=== PATIENT | male | born 1960 | race Caucasian/White ===

== ENCOUNTER 2016-05-15 00:33 | Inpatient (IN) | payer OTHER ==
[2016-05-15] VITALS (16 sets, daily range): BP systolic 118–158; BP diastolic 58–89; PULSE 67–96; RESP 16–20; TEMP 97.8–98.7; O2SAT 91–100
[~2016-05-15] VITALS: Ht 182.9 cm; Wt 93.2 kg
[2016-05-15] MEDS ORDERED: LORazepam 2 MG/ML VIAL ONE ×2 (02:03→03:33)
[2016-05-15 02:26] LABS: AUTOMATED NEUTROPHIL # 6.3 TH/MM3 (1.8-7.7); BASOPHIL % 0.3 % (0.0-2.0); EOSINOPHIL % 0.4 % (0.0-4.0); HEMATOCRIT 41.8 % (39.0-51.0); HEMO FLAGS DIFF FINAL; LYMPH % 23.2 % (9.0-44.0); LYMPHOCYTE # 2.2 TH/MM3 (1.0-4.8); MEAN CORPUSCULAR HEMOGLOBIN 30.5 PG (27.0-34.0); MEAN CORPUSCULAR HGB CONC 34.6 % (32.0-36.0); MONO % 8.7 % (0.0-8.0); NEUT % 67.4 % (16.0-70.0); PLATELET COUNT 268 TH/MM3 (150-450); RED BLOOD COUNT 4.75 MIL/MM3 (4.50-5.90); WHITE BLOOD COUNT 9.3 TH/MM3 (4.0-11.0)
[2016-05-15 02:34] LABS: ACETAMINOPHEN LESS THAN 2.0 MCG/ML (10.0-30.0); ALKALINE PHOSPHATASE 81 U/L (45-117); ALT (GPT) 67 U/L (12-78); AMPHETAMINE, URINE NEG (NEG); ANION GAP 12 MEQ/L (5-15); AST (GOT) 81 U/L (15-37); BARBITURATES, URINE NEG (NEG); BICARBONATE 25.7 MEQ/L (21.0-32.0); BLOOD UREA NITROGEN 17 MG/DL (7-18); CHLORIDE 102 MEQ/L (98-107); COCAINE, URINE NEG (NEG); GLOMERULAR FILTRATION RATE 76 ML/MIN (>89); POTASSIUM 3.1 MEQ/L (3.5-5.1); SODIUM (NA) 140 MEQ/L (136-145)
[2016-05-15 02:54] LABS: TOTAL BILIRUBIN ADULT 0.9 MG/DL (0.2-1.0)
[2016-05-15] MEDS ORDERED: HALOPERIDOL LACTATE 5 MG/ML AMP ONE ×2 (03:12→03:33)
[2016-05-15] MEDS ORDERED: LORazepam 2 MG/ML VIAL IM ONE (03:15)
[2016-05-15] MEDS ORDERED: HALOPERIDOL LACTATE 5 MG/ML AMP IM ONE (03:15)
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
[2016-05-15] MEDS ORDERED: diphenhydrAMINE HCL 50 MG/ML VIAL ONE (03:43)
[2016-05-15] MEDS ORDERED: diphenhydrAMINE HCL 50 MG/ML VIAL IM ONE (03:45)
[2016-05-15] MEDS ORDERED: POTASSIUM CHLORIDE 20 MEQ CONTROLLED RELEASE TAB PO ONE (03:45)
--- NOTE | 2016-05-15 04:32 | RADRPT ---
EXAM DATE/TIME: 05/15/2016 03:53 [facility] COMPARISON: No previous studies available for comparison. INDICATIONS : Altered mental status. RADIATION DOSE: 56.77 CTDIvol (mGy) MEDICAL HISTORY : None SURGICAL HISTORY : None. ENCOUNTER: Initial ACUITY: 1 day PAIN SCALE: 0/10 LOCATION: cranial TECHNIQUE: Multiple contiguous axial images were obtained of the head. Using automated exposure control and adj ustment of the mA and/or kV according to patient size, radiation dose was kept as low as reasonably a chievable to obtain optimal diagnostic quality images. FINDINGS: CEREBRUM: There is a 12 mm hyperdensity in the cortex of the left lateral frontal lobe near the junction with t he middle cranial fossa, best seen on image #11. No associated mass effect or midline shift. The le ft frontal horn is not effaced. There is good kwok-white matter differentiation throughout the remai nder of the supratentorial brain. POSTERIOR FOSSA: The cerebellum and brainstem are intact. The 4th ventricle is midline. The cerebellopontine angle i s unremarkable. EXTRACRANIAL: The visualized portion of the orbits is intact. Air-fluid level in the left maxillary sinus and a fe w opacified right ethmoid air cells. SKULL: The calvaria is intact. No evidence of skull fracture. CONCLUSION: 1. 12 mm hyperdensity cortex left lateral frontal lobe suggests hemorrhage or tumor. May consider fu rther characterization using MRI with and without contrast. 2. Left maxillary sinus disease. Alessandro Becerra MD on May 15, 2016 at 4:26 Board Certified Radiologist. This report was verified electronically.
[2016-05-15] MEDS ORDERED: POTASSIUM CHLOR 20 MEQ PREMIX 100 ML ONE (05:30)
[2016-05-15] MEDS ORDERED: POTASSIUM CHLOR 20 MEQ PREMIX 100 ML IV ONE (05:30)
[2016-05-15 05:31] LABS: APTT (PATIENT) 27.5 SEC (24.3-30.1); INTERNATIONAL NORMALIZED RATIO 1.1 RATIO; PROTHROMBIN TIME - PATIENT 11.9 SEC (9.8-11.6)
--- NOTE | 2016-05-15 05:39 | PD ---
Physical Exam Narrative GENERAL: Well-nourished, well-developed patient. SKIN: Warm and dry. HEAD: Normocephalic EYES: No injection or drainage. ENT: No nasal drainage noted. NECK: Supple, trachea midline. CARDIOVASCULAR: Regular rate and rhythm RESPIRATORY: No accessory muscle use. NEUROLOGICAL: Opens eyes to voice, restrained, slurred speech Data Data Last Documented VS Vital Signs Date Time Temp Pulse Resp B/P Pulse Ox O2 Delivery O2 Flow Rate FiO2 05/15/16 05:05 87 18 148/85 98 Nasal Cannula 2 05/15/16 04:10 98.4 Orders Complete Blood Count With Diff (05/15/16 00:44) Comprehensive Metabolic Panel (05/15/16 00:44) Drug Screen, Random Urine (05/15/16 00:44) Alcohol (Ethanol) (05/15/16 00:44) Salicylates (Aspirin) (05/15/16 00:44) Tylenol (Acetaminophen) (05/15/16 00:44) Psych Screen (05/15/16 00:44) Lorazepam Inj (Ativan Inj) (05/15/16 02:03) Haloperidol Inj (Haldol Inj) (05/15/16 03:15) Lorazepam Inj (Ativan Inj) (05/15/16 03:15) Haloperidol Inj (Haldol Inj) (05/15/16 03:12) Diphenhydramine Inj (Benadryl Inj) (05/15/16 03:45) Haloperidol Inj (Haldol Inj) (05/15/16 03:33) Lorazepam Inj (Ativan Inj) (05/15/16 03:33) Ct Brain W/O Iv Contrast(Rout) (05/15/16 ) Potassium Chloride (Kcl) (05/15/16 03:45) Diphenhydramine Inj (Benadryl Inj) (05/15/16 03:43) Act Partial Throm Time (Ptt) (05/15/16 04:54) Prothrombin Time / Inr (Pt) (05/15/16 04:54) Mri Brain W&W/O Contrast (05/15/16 ) Consult Neurosurgery (05/15/16 ) Potassium Chlor 20 Meq Premix (Kcl 20 Me (05/15/16 05:30) Admit Order (Ed Use Only) (05/15/16 05:26) Labs Laboratory Tests Test 05/15/16 05/15/16 05/15/16 00:44 01:08 05:00 White Blood Count 9.3 TH/MM3 Red Blood Count 4.75 MIL/MM3 Hemoglobin 14.5 GM/DL Hematocrit 41.8 % Mean Corpuscular Volume 88.0 FL Mean Corpuscular Hemoglobin 30.5 PG Mean Corpuscular Hemoglobin 34.6 % Concent Red Cell Distribution Width 13.0 % Platelet Count 268 TH/MM3 Mean Platelet Volume 8.9 FL Neutrophils (%) (Auto) 67.4 % Lymphocytes (%) (Auto) 23.2 % Monocytes (%) (Auto) 8.7 % Eosinophils (%) (Auto) 0.4 % Basophils (%) (Auto) 0.3 % Neutrophils # (Auto) 6.3 TH/MM3 Lymphocytes # (Auto) 2.2 TH/MM3 Monocytes # (Auto) 0.8 TH/MM3 Eosinophils # (Auto) 0.0 TH/MM3 Basophils # (Auto) 0.0 TH/MM3 CBC Comment DIFF FINAL Differential Comment Sodium Level 140 MEQ/L Potassium Level 3.1 MEQ/L Chloride Level 102 MEQ/L Carbon Dioxide Level 25.7 MEQ/L Anion Gap 12 MEQ/L Blood Urea Nitrogen 17 MG/DL Creatinine 1.03 MG/DL Estimat Glomerular Filtration 76 ML/MIN Rate Random Glucose 152 MG/DL Calcium Level 9.2 MG/DL Total Bilirubin 0.9 MG/DL Aspartate Amino Transf 81 U/L (AST/SGOT) Alanine Aminotransferase 67 U/L (ALT/SGPT) Alkaline Phosphatase 81 U/L Total Protein 7.6 GM/DL Albumin 4.5 GM/DL Salicylates Level LESS THAN 1.7 MG/DL Urine Opiates Screen NEG Acetaminophen Level LESS THAN 2.0 MCG/ML Urine Barbiturates Screen NEG Urine Amphetamines Screen NEG Urine Benzodiazepines Screen NEG Urine Cocaine Screen NEG Urine Cannabinoids Screen POS Ethyl Alcohol Level LESS THAN 3 MG/DL Prothrombin Time 11.9 SEC Prothromb Time International 1.1 RATIO Ratio Activated Partial 27.5 SEC Thromboplast Time [facility] Supervised Visit with JOHNNA: Yes Interpretation(s) CBC & BMP Diagram 05/15/16 00:44 05/15/16 01:08 CT brain with contusion versus bleed noted Narrative Course I, Dr. coffey, have reviewed the advance practice practitioner's documentation and am in agreement, met with the patient face to face, made the diagnosis, and the medical decision making was done by me. *My assessment and Findings: 55-year-old male presents under Kidd act for altered mental status. He was seen by the physician construction management assistant who ordered initial testing. When CT resulted with possible bleed he was transferred to my medical pod. Patiently is currently restrained in lidia and sedated. He will open his eyes to voice and lift his head. Neurosurgery was contacted and he'll be monitored in the ICU by the medical team. Diagnosis Primary Impression: Intracranial bleed Additional Impression: Altered mental status Qualified Code: R41.82 - Altered mental status, unspecified altered mental status type Admitting Information Admitting Physician Requests: Admit Edilia Coffey MD May 15, 2016 05:39
[2016-05-15] MEDS ORDERED: BISACODYL 10 MG SUPP PR PRN (05:45)
[2016-05-15] MEDS ORDERED: MISCELLANEOUS NURSING INFORMATION XX SCH (05:45)
[2016-05-15] MEDS ORDERED: ACETAMINOPHEN 1000 MG/100 ML VIAL IV PRN (05:45)
[2016-05-15] MEDS ORDERED: CHLORHEXIDINE GLUCONATE 2 % 1 PACK (2 CLOTHS) TOP PRN (05:45)
[2016-05-15] MEDS ORDERED: SODIUM CHLORIDE 0.9% FLUSH 5 ML FLUSH FLUSH PRN (05:45)
[2016-05-15] MEDS ORDERED: ONDANSETRON HCL 4 MG/2 ML VIAL IVP PRN (05:45)
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
[2016-05-15] MEDS: SODIUM CHLOR 0.9% 1000 ML INJ 1,000 ML IV SCH (05:48)
[2016-05-15] MEDS: SODIUM CHLORIDE 0.9% FLUSH 5 ML FLUSH FLUSH SCH (09:00)
[2016-05-15] MEDS ORDERED: HALOPERIDOL LACTATE 5 MG/ML AMP IM PRN (11:00)
[2016-05-15] MEDS ORDERED: LORazepam 2 MG/ML VIAL IM PRN (11:00)
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
--- NOTE | 2016-05-15 13:52 | PD.CONS ---
Provisional Diagnosis Admission Date May 15, 2016 at 05:32 [place]. Altered mental status History of Present Illness Service Psychiatry Consult Requested By EDMD Reason for Consult Kidd act Primary Care Physician No Primary Care Physician HPI Patient is a 55-year-old white male who comes the ED under Kidd act by the [place] [employer] dated 05/15/16 at 0030 a.m. stating Prasad is unable to determine which day of the week it is and cannot keep a conversation continuous making incoherent remarks patient seen and seen in the ED urine toxicology positive for marijuana. Patient is quite agitated needing restraints and medication to calm in the ED. There is been an overall MRI of the brain neurosurgery is involved in monitoring that. At the present time patient sitting on his gurney and the C pod RN present throughout session patient is alert fairly well oriented though diffusely confused and somewhat contradictory with his statements. There is underlying anger and paranoia related to this. Patient makes contradictory statements also about past psychiatric history initially denying at than saying his mother made do something about this. He does obliquely acknowledged past alcohol use he minimizes the urine toxicology report of marijuana. He denies voices or visions denies suicidality homicidality. He states he been 3 times see lives in a bar and that he inherited from his family. It appears the patient calm somewhat with the use of Haldol and Ativan. I would recommend and agree with this if behavior control as needed well patient to be medically observed and worked up. At this time I would suggest to continue the Kidd act. Thanks for consult we'll continue to follow Review of Systems Except as stated in HPI: all other systems reviewed are Neg Past Family Social History Coded Allergies: UNOBTAINABLE (Unverified , 05/15/16) Past Medical History Unknown at this time Current Medications Medications (Trade) Dose Ordered Sig/Sophie Route Start Time Stop Time Status Last Admin (NS 1000 ml Inj) 1,000 ml @ 100 mls/hr Q10H IV 05/15/16 05:32 05/15/16 05:48 (NS Flush) 2 ml UNSCH PRN FLUSH 05/15/16 05:45 (NS Flush) 2 ml BID FLUSH 05/15/16 09:00 (Zofran Inj) 4 mg Q6H PRN IVP 05/15/16 05:45 (Dulcolax Supp) 10 mg DAILY PRN WI 05/15/16 05:45 (Ofirmev Inj) 1,000 mg Q6H PRN IV 05/15/16 05:45 05/15/16 23:46 Miscellaneous Information 1 [id number] XX 05/15/16 05:45 (Chlorhexidine 2% Cloth) 3 pack Taper DAILY@04 TOP 05/16/16 04:00 05/12/17 03:59 (Chlorhexidine 2% Cloth) 3 pack UNSCH PRN TOP 05/15/16 05:45 (Haldol Inj) 5 mg Q4H PRN IM 05/15/16 11:00 (Ativan Inj) 1 mg Q2H PRN IM 05/15/16 11:00 Family History He states he was on the family property Social History States has been 3 times Patient's Strengths (min. 2) Patient verbal responses to treatment Physical Exam Please see med surge assessments Vital Signs Vital Signs Date Time Temp Pulse Resp B/P Pulse Ox O2 Delivery O2 Flow Rate FiO2 05/15/16 13:00 91 20 149/89 98 Room Air 05/15/16 05:39 2 05/15/16 04:10 98.4 Mental Status Examination Alert fairly well oriented muscular white male appears stated age on the gurney in full leather restraints somewhat vigilant with intense eye contact with a paranoid flavor Appearance Somewhat disheveled Speech: Pressured, Rapid Orientation: x3 Memory: Impaired (describe) (vague about behaviors leading to this hospitalization) Thought Process: Circumstantial, Linear, Tangential Thought Content: Unremarkable Hallucination Type: None Attention and Concentration: Other (fair) Suicidal Ideation: No Previous Suicide Attempts: No Homicidal Ideation: No Previous Homicide Attempts: No Insight: Poor Judgement: Poor Affect: Other (slight increased range and intensity) Mood: Irritable Motor Activity: Normal gait (patient for the straight secondary) Assessment & Plan Problem List: (1) Altered mental status ICD Code: R41.82 Assessment & Plan Estimated LOS: days would recommend continued observation and assessment and treatment, agree with the use of Haldol for behavioral control. Thanks for consult we'll continue to follow Discharge Planning See above Problem Qualifiers (1) Altered mental status: Qualified Code: R41.82 - Altered mental status, unspecified altered mental status type Santy Loo MD May 15, 2016 13:52
[2016-05-15] MEDS ORDERED: GADODIAMIDE PF 287 MG/ML 20 ML VIAL (for RAD MRI) IV ONE (15:59)
--- NOTE | 2016-05-15 16:35 | RADRPT ---
EXAM DATE/TIME: 05/15/2016 15:50 [place] COMPARISON: CT BRAIN W/O CONTRAST, May 15, 2016, 3:53. INDICATIONS : Mass. Abnormal CT. CONTRAST: 18 cc Omniscan (gadodiamide) IV MEDICAL HISTORY : None. SURGICAL HISTORY : Appendectomy. ENCOUNTER: Initial ACUITY: 1 day PAIN SCORE: 0/10 LOCATION: cranial TECHNIQUE: Multiplanar, multisequence MRI of the brain was performed both prior to and following the administrat ion of paramagnetic contrast. FINDINGS: CEREBRUM: The ventricles are normal for age. No evidence of midline shift, mass lesion, hemorrhage or acute in farction. No extraaxial fluid collections are seen. There is a homogeneously enhancing extra-axial mass along the left lateral frontal lobe measuring 1.3 x 1.1 x 1.5 cm consistent with probable mening ioma. The pituitary gland and suprasellar cistern are normal in configuration. WHITE MATTER: No significant signal abnormalities are seen in the white matter. POSTERIOR FOSSA: The cerebellum and brainstem are intact. The 4th ventricle is midline. The cerebellopontine angle is unremarkable. The cerebellar tonsils are normal in position. DIFFUSION IMAGING: No focal areas of restricted diffusion are seen. No evidence of acute infarction. EXTRACRANIAL: The visualized portions of the orbits are unremarkable. Minimal mucosal thickening is noted within le ft maxillary sinus. POST-CONTRAST: No abnormal areas of parenchymal or dural enhancement. No evidence of blood-brain barrier breakdown. CONCLUSION: 1. Homogeneously enhancing extra-axial mass along the left lateral frontal lobe measuring 1.3 x 1.1 x 1.5 cm consistent with probable meningioma. 2. No acute infarct, acute hemorrhage, mass effect, extra-axial fluid collection or intra-axial enhan cing lesion. 3. Minimal mucosal thickening within left maxillary sinus. Shin Snyder MD on May 15, 2016 at 16:28 Board Certified Radiologist. This report was verified electronically.
[2016-05-16] VITALS (8 sets, daily range): BP systolic 115–147; BP diastolic 62–70; PULSE 69–96; RESP 16–22; TEMP 98.3–98.8; O2SAT 95–98
[2016-05-16] MEDS ORDERED: CHLORHEXIDINE GLUCONATE 2 % 1 PACK (2 CLOTHS) TOP SCH (04:00)
[2016-05-16 05:10] LABS: AUTOMATED NEUTROPHIL # 5.5 TH/MM3 (1.8-7.7); BASOPHIL % 0.5 % (0.0-2.0); EOSINOPHIL # 0.1 TH/MM3 (0-0.4); EOSINOPHIL % 1.5 % (0.0-4.0); HEMATOCRIT 41.2 % (39.0-51.0); HEMO FLAGS DIFF FINAL; LYMPH % 20.9 % (9.0-44.0); LYMPHOCYTE # 1.7 TH/MM3 (1.0-4.8); MEAN CELL VOLUME 88.3 FL (80.0-100.0); MEAN CORPUSCULAR HEMOGLOBIN 30.6 PG (27.0-34.0); MEAN CORPUSCULAR HGB CONC 34.7 % (32.0-36.0); MONO % 9.4 % (0.0-8.0); NEUT % 67.7 % (16.0-70.0); PLATELET COUNT 214 TH/MM3 (150-450); RED BLOOD COUNT 4.66 MIL/MM3 (4.50-5.90); RED CELL DISTRIBUTION WIDTH 12.9 % (11.6-17.2); WHITE BLOOD COUNT 8.1 TH/MM3 (4.0-11.0)
[2016-05-16 06:02] LABS: ALKALINE PHOSPHATASE 81 U/L (45-117); ALT (GPT) 65 U/L (12-78); ANION GAP 8 MEQ/L (5-15); AST (GOT) 107 U/L (15-37); BLOOD UREA NITROGEN 11 MG/DL (7-18); CHLORIDE 106 MEQ/L (98-107); GLOMERULAR FILTRATION RATE 104 ML/MIN (>89); POTASSIUM 3.5 MEQ/L (3.5-5.1); SODIUM (NA) 142 MEQ/L (136-145)
[2016-05-16] MEDS: SODIUM CHLORIDE 0.9% FLUSH 5 ML FLUSH FLUSH SCH (09:00)
--- NOTE | 2016-05-16 09:09 | PD.CONS ---
History of Present Illness Service Neurosurgery Consult Requested By Medicine service Reason for Consult Left frontal lesion. Altered mental status Primary Care Physician No Primary Care Physician Diagnoses: History of Present Illness 55-year-old gentleman brought to the emergency room as a Kidd act after he was found to be confused. Became agitated and combative in the emergency room. The patient reports no problems and states that he feels well. No headache, dizziness. Denies significant confusion. No speech difficulty. He was found to have a small left frontal lobe lesion on initial CT and MRI of the brain. He has been seen by psychiatry for evaluation with patient noted to be incoherent and confused with some component of anger and paranoia, initial diagnosis of mental status. Review of Systems Constitutional: DENIES: Fever Eyes: DENIES: Blurred vision, Diplopia Ears, nose, mouth, throat: DENIES: Hearing loss, Vertigo Respiratory: DENIES: Cough, Shortness of breath Cardiovascular: DENIES: Chest pain Gastrointestinal: DENIES: Abdominal pain, Nausea, Vomiting Musculoskeletal: DENIES: Muscle aches Neurologic: DENIES: Abnormal gait, Headache, Speech Problems Psychiatric: DENIES: Anxiety, Depression Past Family Social History Allergies: Coded Allergies: UNOBTAINABLE (Unverified , 05/15/16) Past Medical History Denies cardiac, pulmonary, gastrointestinal disease, diabetes, hypertension Denies anxiety or depression Past Surgical History Tonsillectomy Reported Medications Reports no prescription medications Family History Father with diabetes, skin cancer in his mother Social History She is tobacco Denies significant alcohol use Occasional marijuana Physical Exam Vital Signs Vital Signs Date Time Temp Pulse Resp B/P Pulse Ox O2 Delivery O2 Flow Rate FiO2 05/16/16 06:00 83 05/16/16 04:00 70 05/16/16 04:00 98.8 69 16 115/62 97 05/16/16 02:00 72 05/16/16 00:00 72 05/16/16 00:00 98.8 69 16 115/62 97 05/15/16 22:00 67 05/15/16 20:00 67 05/15/16 20:00 97 21 05/15/16 20:00 97.8 75 18 118/78 91 05/15/16 15:00 91 18 153/83 97 Room Air 05/15/16 14:00 93 20 150/60 97 Room Air 05/15/16 13:00 91 20 149/89 98 Room Air 05/15/16 12:00 87 20 135/80 98 Room Air 05/15/16 11:00 86 16 120/81 98 Room Air 05/15/16 10:00 71 20 135/78 98 Room Air 05/15/16 09:00 96 19 119/58 99 Room Air Physical Exam GENERAL: This is a well-nourished, well-developed patient, in no apparent distress. SKIN: No rashes, ecchymoses or lesions. HEAD: No lacerations or contusions. Normocephalic EYES: Sclerae are clear and nonicteric. No periorbital edema or ecchymosis ENT: No CSF otorrhea or rhinorrhea. No facial fracture or deformity NECK: Supple, nontender, no meningeal signs. CARDIOVASCULAR: Regular rate and rhythm RESPIRATORY: Clear to auscultation. Breath sounds equal bilaterally. No wheezes , rales, or rhonchi. GASTROINTESTINAL: Abdomen soft, non-tender, nondistended. MUSCULOSKELETAL: Extremities without cyanosis, or edema. No joint tenderness, effusion, or edema noted. No calf tenderness. Posterior tibial pulse 2+ bilateral NEUROLOGICAL: Awake and alert Oriented X 3 Speech is clear, somewhat pressured Conversant and appropriate Follow simple commands well Answers questions appropriately Appears to have diminished judgment and insight Recent and remote memory are intact No evidence of anxiety or depression Pupils are equal and reactive to accommodation. Extra-ocular movements, visual vick to confrontation, facial sensorimotor, tongue, palate, sternocleidomastoid testing, hearing to finger rub testing, and bilateral shoulder shrug are all intact. Sensation is intact to light touch in all extremities Strength normal major flexion and extension groups all extremities Margarita's absent bilaterally No ankle clonus Plantar responses absent bilateral Fine motor movements intact upper extremities Laboratory Laboratory Tests Test 05/15/16 05/16/16 19:00 04:37 Nasal Screen MRSA (PCR) NEGATIVE White Blood Count 8.1 Red Blood Count 4.66 Hemoglobin 14.3 Hematocrit 41.2 Mean Corpuscular Volume 88.3 Mean Corpuscular Hemoglobin 30.6 Mean Corpuscular Hemoglobin 34.7 Concent Red Cell Distribution Width 12.9 Platelet Count 214 Mean Platelet Volume 8.8 Neutrophils (%) (Auto) 67.7 Lymphocytes (%) (Auto) 20.9 Monocytes (%) (Auto) 9.4 Eosinophils (%) (Auto) 1.5 Basophils (%) (Auto) 0.5 Neutrophils # (Auto) 5.5 Lymphocytes # (Auto) 1.7 Monocytes # (Auto) 0.8 Eosinophils # (Auto) 0.1 Basophils # (Auto) 0.0 CBC Comment DIFF FINAL Differential Comment Sodium Level 142 Potassium Level 3.5 Chloride Level 106 Carbon Dioxide Level 28.0 Anion Gap 8 Blood Urea Nitrogen 11 Creatinine 0.78 Estimat Glomerular Filtration 104 Rate Random Glucose 72 Calcium Level 8.6 Total Bilirubin 1.0 Aspartate Amino Transf 107 (AST/SGOT) Alanine Aminotransferase 65 (ALT/SGPT) Alkaline Phosphatase 81 Total Protein 6.9 Albumin 3.7 Result Diagram: 05/16/1643605/16/16436 Imaging 05/15/[address] and brain MRI images reviewed by the undersigned. I agree with findings as noted below: Head CT 05/15/16 0000 Signed Impressions: Service Date/Time: Sunday, May 15, 2016 03:53 - CONCLUSION: 1. 12 mm hyperdensity cortex left lateral frontal lobe suggests hemorrhage or tumor. May consider further characterization using MRI with and without contrast. 2. Left maxillary sinus disease. Alessandro Becerra MD Brain MRI 05/15/16 0000 Signed Impressions: Service Date/Time: Sunday, May 15, 2016 15:50 - CONCLUSION: 1. Homogeneously enhancing extra-axial mass along the left lateral frontal lobe measuring 1.3 x 1.1 x 1.5 cm consistent with probable meningioma. 2. No acute infarct, acute hemorrhage, mass effect, extra-axial fluid collection or intra-axial enhancing lesion. 3. Minimal mucosal thickening within left maxillary sinus. Shin Snyder MD Assessment and Plan Assessment and Plan Impression: 1. Imaging findings most consistent with relatively small left frontal meningioma without significant edema or mass effect. No evidence of seizure activity. Recommendations: Findings were discussed at length with the patient. It is recommended he continue conservative treatment and observation of the left frontal lesion. Follow-up CT scan is recommended in approximately 1 year. Signs and symptoms to watch for been fully discussed He will notify his physicians are compared to the emergency room if any significant changes occur We will notify him in approximately one year for follow-up scan No other neurosurgical intervention planned at the present time. He is clear for discharge from a neurosurgical standpoint Cornell Do MD May 16, 2016 09:09
[2016-05-16] MEDS: SODIUM CHLOR 0.9% 1000 ML INJ 1,000 ML IV SCH (11:32)
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
--- NOTE | 2016-05-16 15:54 | HHI.PYPN ---
Subjective Remarks Patient is seen for evaluation today, his brother was contacted for collateral information, patient was calm and cooperative, he reports good mood, says that he feels much better, denies depressive symptoms, denies anxiety, denies perceptual disturbances, he is oriented 3, he denies suicidal ideation, he denies visual and auditory hallucinations. No delirium, confusion, disorganized behavior, agitation, fluctuation of consciousness, attention deficit has been observed or reported at this moment. Review of Systems Other No significant changes since 05/15/2016 Objective Alert: Yes Anderson: Person, Place, Date, Situation Mood: Calm Affect: Euthymic Memory Intact: Immediate, Recent, Remote Hallucinations: Other (none) Delusions: No Delusion Type: Other (none) Suicidal: Ideation (he denies) Homicidal: Ideation (he denies) Insight/Judgement Good Labs Test 05/15/16 05/16/16 19:00 04:37 Nasal Screen MRSA (PCR) NEGATIVE White Blood Count 8.1 TH/MM3 Red Blood Count 4.66 MIL/MM3 Hemoglobin 14.3 GM/DL Hematocrit 41.2 % Mean Corpuscular Volume 88.3 FL Mean Corpuscular Hemoglobin 30.6 PG Mean Corpuscular Hemoglobin 34.7 % Concent Red Cell Distribution Width 12.9 % Platelet Count 214 TH/MM3 Mean Platelet Volume 8.8 FL Neutrophils (%) (Auto) 67.7 % Lymphocytes (%) (Auto) 20.9 % Monocytes (%) (Auto) 9.4 % Eosinophils (%) (Auto) 1.5 % Basophils (%) (Auto) 0.5 % Neutrophils # (Auto) 5.5 TH/MM3 Lymphocytes # (Auto) 1.7 TH/MM3 Monocytes # (Auto) 0.8 TH/MM3 Eosinophils # (Auto) 0.1 TH/MM3 Basophils # (Auto) 0.0 TH/MM3 CBC Comment DIFF FINAL Differential Comment Sodium Level 142 MEQ/L Potassium Level 3.5 MEQ/L Chloride Level 106 MEQ/L Carbon Dioxide Level 28.0 MEQ/L Anion Gap 8 MEQ/L Blood Urea Nitrogen 11 MG/DL Creatinine 0.78 MG/DL Estimat Glomerular Filtration 104 ML/MIN Rate Random Glucose 72 MG/DL Calcium Level 8.6 MG/DL Total Bilirubin 1.0 MG/DL Aspartate Amino Transf 107 U/L (AST/SGOT) Alanine Aminotransferase 65 U/L (ALT/SGPT) Alkaline Phosphatase 81 U/L Total Protein 6.9 GM/DL Albumin 3.7 GM/DL Vitals/IOs Vital Signs Date Time Temp Pulse Resp B/P Pulse Ox O2 Delivery O2 Flow Rate FiO2 05/16/16 14:00 87 05/16/16 12:00 98.5 21 123/70 98 05/15/16 20:00 21 05/15/16 15:00 Room Air 05/15/16 05:39 2 Intake and Output 05/15/16 05/15/16 05/16/16 08:00 16:00 00:00 Intake Total 350 ml Balance 350 ml Assessment & Plan Problem List: (1) Altered mental status Assessment & Plan: Patient does not present any evident objective of subjective depression, anxiety, pernell, perceptual disturbances. Patient denies suicidal and homicidal ideation. He denies visual and auditory hallucinations. As per brother patient is now at baseline. Patient does not need any immediate psychiatric care, Kidd act will be lifted. ICD Code: R41.82 Assessment & Plan Estimated LOS: days Justification for Cont. Inpt. The patient does not meet criteria for inpatient psychiatric admission at this moment. Problem Qualifiers (1) Altered mental status: Qualified Code: R41.82 - Altered mental status, unspecified altered mental status type Enrique Blanchard MD May 16, 2016 15:54
== END 2016-05-16 16:15 | disposition home or self-care (01) | DRG 54 ==
LOC: NED 00:33 → NEDA 05:32 → NEDH 10:56 → HIMN 16:20
PROVIDERS: ADMIT Hospitalist; ATTEND Hospitalist
DX: D32.0 Benign neoplasm of cerebral meninges (principal); G93.40 Encephalopathy, unspecified; F12.90 Cannabis use, unspecified, uncomplicated; E87.6 Hypokalemia; Z78.1 Physical restraint status
CPT/HCPCS: 70450; 70553; 80053; 80307; 80320; 80329; 85025; 85610; 85730; 87641; 96372; A9579; G0480; J1200; J1630; J2060; J3480; J7030